=== PATIENT | female | born 1960 | race Caucasian/White ===

== ENCOUNTER 2022-08-12 17:04 | Outpatient (CLI) | payer OTHER, SELFPAY ==
[2022-08-12 18:05] LABS: SARS-CoV-2 RNA PCR Negative
== END 2022-08-12 17:05 | disposition home or self-care (01) ==
LOC: ANHLAB 17:07
PROVIDERS: PCP Internal Medicine; Visit Provider Internal Medicine
DX: J06.9 Acute upper respiratory infection, unspecified (principal); Z20.822 Contact with and (suspected) exposure to COVID-19
CPT/HCPCS: U0003; U0005

== ENCOUNTER 2024-06-21 08:28 | Day surgery (SDC) | payer MEDICARE, SELFPAY ==
[2024-05-23 15:15] VITALS: BMI 24.2
--- NOTE | 2024-06-21 06:56 | P.PNAN_ITS ---
Anes - Initial Pre Proc Eval Procedure: Operation Date: 06/21/24 09:00 Proposed Procedures p Esophagogastroduodenoscopy - Vishnu Savage MD Date/Time: 06/21/24 06:56 Surgeon: Vishnu Savage MD Pre Op Diagnosis: Gerd Patient Data Age: 64 Gender: F Height: 1.55 m Weight: 56.8 kg Allergies Allergy/AdvReac Type Severity Reaction Status Date / Time oxybutynin Allergy Unknown Unknown Verified 06/21/24 08:57 Home Medications Medication Instructions Recorded Confirmed Type cetirizine 10 mg tablet 10 mg PO DIRECTED 06/02/24 06/21/24 History folic acid 1 mg tablet 1 mg PO DIRECTED 06/02/24 06/21/24 History omeprazole 40 mg capsule,delayed 40 mg PO DIRECTED 06/02/24 06/21/24 History release Patient hx anesthesia problems: none Family hx anesthesia problems: none Results Review: All pre-operative results and documents have been reviewed as part of the pre- operative evaluation. [facility] Social History Social History (System 10/30/21 @ 11:14 by Robe Corona) Smoking status: Former smoker Alcohol intake: current Drinks per week: 7 Alcohol use details: 1-2 per day Substance use: current Substance use type: marijuana Other substance usage details: sometimes daily Living arrangements: with family Anes - Eval Final PreProcedure Day of Procedure 06/21/24 06:56 Patient weight: normal Heart: regular rate and rhythm Lungs: clear to auscultation and normal air movement Airway: Mallampati scale class II Neurological: alert and oriented Last oral intake: >/= 8 hours ASA classification: III Emergent: no Anesthetic plan: proceed Anesthesia type and monitoring: general GIVS and standard monitoring Results Review: All pre-operative results and documents have been reviewed as part of the pre- operative evaluation. Informed Consent: The patient's anesthetic plan and its attendant risks and benefits were discussed with the patient/family/POA. Questions were solicited and answers provided to the satisfaction of the patient/family/POA.
[2024-06-21 09:07] VITALS: BP 148/95; PULSE 100; RESP 18; TEMP 36.5; O2SAT 100; BMI 24.6
[2024-06-21] MEDS: LACTATED RINGERS 1,000 ML 150 ML IV CONT (09:10)
--- NOTE | 2024-06-21 09:19 | P.HP_ITS ---
History of Present Illness History of Present Illness Consent: Risks, benefits, and alternatives have been discussed and questions answered. Patient agrees to proceed with procedure. Chief complaint: Gerd Narrative: Samira Logan is a 64 year old female presents for EGD. Long history of acid reflux. Patient previously on famotidine. This was changed to omeprazole. She states she currently takes omeprazole 40mg p.o. daily after breakfast with consistent relief in symptoms. She occasionally has breakthrough heartburn. Patient denies any dysphagia or weight loss. She states she has been on this medicine for 1 year with no change. She cannot remember having a prior EGD. Patient referred today for EGD to assess symptoms. Family history is noncontributory. Review of Systems Review of Systems: All systems reviewed & are unremarkable except as noted in HPI and below [facility] Social History Social History (System 10/30/21 @ 11:14 by Robe Corona) Smoking status: Former smoker Alcohol intake: current Drinks per week: 7 Alcohol use details: 1-2 per day Substance use: current Substance use type: marijuana Other substance usage details: sometimes daily Living arrangements: with family Meds Home Medications and Allergies Home Medications Medication Instructions Recorded Confirmed Type cetirizine 10 mg tablet 10 mg PO DIRECTED 06/02/24 06/21/24 History folic acid 1 mg tablet 1 mg PO DIRECTED 06/02/24 06/21/24 History omeprazole 40 mg capsule,delayed 40 mg PO DIRECTED 06/02/24 06/21/24 History release Allergies Allergy/AdvReac Type Severity Reaction Status Date / Time oxybutynin Allergy Unknown Unknown Verified 06/21/24 08:57 Vital Signs Vital Signs - 24 hr 06/21/24 09:07 Temperature 97.7 F Pulse Rate 100 Respiratory Rate 18 Blood Pressure 148/95 H Pulse Oximetry 100 Oxygen Delivery Room Air Exam Narrative: Physical exam reveals patient. Vital signs stable. HEENT exam is unremarkable. Patient is anicteric. Is are clear to auscultation and to percussion heart is without murmur or extra sounds. Abdomen bowel sounds are present soft nontender. Assessment and Plan Assessment and plan (1) Chronic GERD: Code(s): K21.9 - Gastro-esophageal reflux disease without esophagitis Status: Acute Assessment and Plan: Patient appears to have ongoing acid reflux. This appears to only be partially responsive to PPI plan to take omeprazole 40mg before meals. Anti-reflux measures are encouraged. Follow-up EGD to be performed today. Further recommendations may be given after endoscopy.
[2024-06-21 09:31] VITALS: BP 95/64; PULSE 75; RESP 20; O2SAT 99
[2024-06-21 09:41] VITALS: BP 81/64; PULSE 58; RESP 18; O2SAT 100
[2024-06-21 09:51] VITALS: BP 127/81; PULSE 69; RESP 15; O2SAT 100
[2024-06-21 10:01] VITALS: BP 129/88; PULSE 51; RESP 16; O2SAT 100
--- NOTE | 2024-06-21 12:31 | WPDANESPN ---
Anes - Prog Note Post-Op Date/Time: 06/21/24 12:31 Cardiovascular status: normal Respiratory status: normal Airway patency: baseline Mental status: baseline Post-Op hydration status: normal Vital Signs: Last Vital Signs Temp 36.5 C 06/21/24 09:07 Pulse 51 L 06/21/24 10:01 Resp 16 06/21/24 10:01 BP 129/88 06/21/24 10:01 Pulse Ox 100 06/21/24 10:01 O2 Del Method Room Air 06/21/24 10:01 Pain Score (VAS): 0 I/O: Intake & Output 06/20/24 06/21/24 06/21/24 23:59 07:59 15:59 Intake Total 500 Balance 500 Post-procedural complaints: none Patient Feedback: Patient satisfied with anesthetic care. Other Findings: Patient vital signs back to baseline. Patient denies nausea and vomiting. Patient's pain under control. Patient OK for discharge.
== END 2024-06-21 10:11 | disposition home or self-care (01) ==
PROVIDERS: PCP Internal Medicine; Visit Provider Internal Medicine Gastroenterology
PROC: 0DJ08ZZ Inspection of Upper Intestinal Tract, Via Natural or Artificial Opening Endoscopic (ICD-10-PCS; CPT 43235; principal; 2024-06-21 09:00)
DX: K21.9 Gastro-esophageal reflux disease without esophagitis (principal); R12 Heartburn
CPT/HCPCS: 43239